=== PATIENT | female | born 1945 | race Caucasian/White ===

== ENCOUNTER 2021-10-05 05:45 | Emergency (ER) | payer MEDICARE, BC ==
[~2021-10-05] VITALS: Ht 170.2 cm; Wt 74.0 kg
[~2021-10-05 05:45] MED LIST: ALLO100T PO; BIMA2.5D4 EACHEYE; BRIM5DRO2 EACHEYE; GLU850T PO; LOP25T PO; NORCO10T PO; PANT40TA39 PO; SYN0.1T PO
[2021-10-05] MEDS ORDERED: acetaminophen 325mg tablet PO ONE (06:10)
[2021-10-05] MEDS ORDERED: ketorolac trometh. 30mg/ml inj. IM ONE (10:00)
--- NOTE | 2021-10-05 10:46 | NUR ---
c/o neck pain since May. Patient had fall on June 22. She received physical therapy last Tuesday and Tuesday. Patient was given exercises to do and now pain is worse.
[2021-10-05] MEDS ORDERED: IBUP-1985 PO (11:18)
[2021-10-05 11:47] VITALS: BP 156/88
== END 2021-10-05 11:48 | disposition home or self-care (01) ==
LOC: ER 05:47
DX: M77.8 Other enthesopathies, not elsewhere classified (principal); M54.6 Pain in thoracic spine; R20.0 Anesthesia of skin; E78.00 Pure hypercholesterolemia, unspecified; I10 Essential (primary) hypertension; K21.9 Gastro-esophageal reflux disease without esophagitis; G89.29 Other chronic pain; Z87.442 Personal history of urinary calculi; Z90.49 Acquired absence of other specified parts of digestive tract; Z88.0 Allergy status to penicillin; Z88.1 Allergy status to other antibiotic agents; Z88.8 Allergy status to other drugs, medicaments and biological substances; Z79.899 Other long term (current) drug therapy
CPT/HCPCS: 72125; 73030; 96372; 99284; J1885

== ENCOUNTER 2022-02-08 17:51 | Emergency (ER) | payer MEDICARE, BC ==
[~2022-02-08] VITALS: Ht 170.2 cm; Wt 77.3 kg
[~2022-02-08 17:51] MED LIST changes: +IBUP-1985 PO
[2022-02-08] MEDS ORDERED: normal saline 1000ML IV soln IVB ONE (19:55)
[2022-02-08 20:08] LABS: BASOPHILS % (AUTO) 0.3 % (0-1); EOSINOPHILS # (AUTO) 0.1 X10'3 (0-0.9); EOSINOPHILS % (AUTO) 1.5 % (0-6); HEMATOCRIT 41.6 % (35.0-45.0); HEMOGLOBIN 13.4 g/dl (12.0-16.0); LYMPHOCYTES # (AUTO) 1.6 X10'3 (1.1-4.8); LYMPHOCYTES % (AUTO) 19.3 % (21-51); MEAN CORPUSCULAR HEMOGLOBIN 31.7 PG (27.0-31.0); MEAN CORPUSCULAR HGB CONC 32.3 g/dL (33.0-36.5); MEAN CORPUSCULAR VOLUME 98.1 FL (78-98); MEAN PLATELET VOLUME 8.8 FL (7.4-10.4); MONOCYTES # (AUTO) 0.6 X10'3 (0-0.9); MONOCYTES % (AUTO) 7.6 % (2-12); NEUTROPHILS # (AUTO) 5.8 X10'3 (1.8-7.7); NEUTROPHILS % (AUTO) 71.3 % (42-75); PLATELET COUNT 220 X10'3 (140-440); RED BLOOD COUNT 4.24 X10'6 (4.20-5.60); RED CELL DISTRIBUTION WIDTH 15.3 % (11.5-14.5); WHITE BLOOD COUNT 8.2 X10'3 (4.5-11.0)
[2022-02-08 20:23] LABS: ALANINE AMINOTRANSFERASE 32 U/L (12-78); ALBUMIN 3.8 G/DL (3.4-5.0); ALBUMIN/GLOBULIN RATIO 1.1 (1.1-1.5); ALKALINE PHOSPHATASE 72 IU/L (46-116); ANION GAP 13 (8-16); ASPARTATE AMINO TRANSFERASE 15 U/L (10-37); BILIRUBIN,TOTAL 0.2 MG/DL (0.1-1.0); BLOOD UREA NITROGEN 25 MG/DL (7-18); BUN/CREATININE RATIO 23.8 (6.6-38.0); CALCIUM 9.3 MG/DL (8.5-10.1); CHLORIDE 109 MMOL/L (99-107); CREATININE 1.05 MG/DL (0.40-0.90); GLUCOSE 168 MG/DL (70-104); POTASSIUM 4.1 MMOL/L (3.5-5.1); SODIUM 145 MMOL/L (135-145); TOTAL CARBON DIOXIDE 23.3 MMOL/L (24-32); TOTAL PROTEIN 7.2 G/DL (6.4-8.2); eGFR 51 ML/MIN
[2022-02-08] MEDS ORDERED: iohexol 350MG/ML 100ml bottle IV ONE (20:45)
[2022-02-08] MEDS ORDERED: dexamethasone sod phosphate 10mg/ml inj IV STA (21:44)
[2022-02-08] MEDS ORDERED: ketorolac trometh. 30mg/ml inj. IV ONE (21:45)
[2022-02-08 22:21] VITALS: BP 155/81
== END 2022-02-08 22:23 | disposition home or self-care (01) ==
LOC: ER 17:51
DX: G43.809 Other migraine, not intractable, without status migrainosus (principal); E78.00 Pure hypercholesterolemia, unspecified; I10 Essential (primary) hypertension; K21.9 Gastro-esophageal reflux disease without esophagitis; G89.29 Other chronic pain; Z87.442 Personal history of urinary calculi; Z90.49 Acquired absence of other specified parts of digestive tract; Z98.890 Other specified postprocedural states; Z88.0 Allergy status to penicillin; Z88.1 Allergy status to other antibiotic agents; Z79.899 Other long term (current) drug therapy
CPT/HCPCS: 36415; 70496; 70498; 80053; 85025; 96361; 96374; 96375; 99285; J1100; J1885; J3490; J7030; Q9967